=== PATIENT | female | born 1985 | race Caucasian/White ===

== ENCOUNTER 2024-12-01 16:50 | Emergency (ER) | payer OTHER, SELFPAY ==
--- NOTE | ~2024-12-01 | XR_ITS ---
CLINICAL HISTORY: CP 2 view chest x-ray Comparison: None Findings: No consolidation or effusion. Normal size heart. No acute fracture. IMPRESSION: 1. No acute findings. This document has been electronically signed by: Alycia Tavarez MD on 12/01/2024 18:02:39
--- NOTE | 2024-12-01 16:54 | ECG_ITS ---
Test Reason : CHEST PAIN Blood Pressure : */* mmHG Vent. Rate : 74 BPM Atrial Rate : 74 BPM P-R Int : 162 ms QRS Dur : 86 ms QT Int : 368 ms P-R-T Axes : 8 57 46 degrees QTcB Int : 408 ms Normal sinus rhythm Normal ECG When compared with ECG of 16-Dec-2014 19:51, No significant change was found Referred By: Generic ED Physician Electronically Signed By: FLOWER HINES MD
[2024-12-01 17:04] VITALS: BP 145/93; PULSE 67; RESP 16; TEMP 36.6; O2SAT 98; BMI 28.5
--- NOTE | 2024-12-01 17:08 | ED_ITS ---
HPI - Chest Pain General Chief Complaint: Chest Pain Stated Complaint: chest pain Time Seen by Provider: 12/01/24 17:30 Related Data Allergies Allergy/AdvReac Type Severity Reaction Status Date / Time amoxicillin [AMOXICILLIN] Allergy Severe RASH Verified 12/01/24 17:05 sulfamethoxazole Allergy Severe RASH Unverified 09/04/23 14:05 [From BACTRIM] trimethoprim [From BACTRIM] Allergy Severe RASH Unverified 09/04/23 14:05 NSAIDS (Non-Steroidal AdvReac Unknown UNKNOWN Unverified 09/04/23 14:05 Anti-Inflamma [NSAIDS (NON-STEROIDAL ANTI-INFLAMMA] PMFSH Social History Social History (System 09/04/23 @ 14:05 by Kira Medina) Smoked in Last 30 Days: No Use of substances other than those prescribed or required for medical reasons: No Advance Directives: No Advance Directives Information Provided: No Do you have a plan to hurt others: No Plan Patient : No Physical Exam 2 Vital Signs: Vital Signs: Last Vital Signs Temp 98.3 F 12/01/24 19:32 Pulse 69 12/01/24 19:32 Resp 18 12/01/24 19:32 BP 151/96 H 12/01/24 19:32 Pulse Ox 99 12/01/24 19:32 O2 Del Method Room Air 12/01/24 19:32 BMI result Body Mass Index 28.5 Course Course Course Narrative: This is an RME: Additional HPI, ROS, PE not included below will be deferred to primary provider. RME assessment and note performed by: Manisha Chavez PA-C This is a 13-ub[age]ybt-female who presents to the ER with concerns for chest pain since last night. Reports that the chest pain is intermittent, left sided. Reports that the chest symptom feels like a fluttering sensation. Started on Wellbutrin 2 weeks ago for smoking cessation. Plan: EKG, labs, cxr, viral swabs, further ER eval needed. Reevaluation(s) Reevaluation #1: >> >> duplicate chart, please see documentation from primary provider, Dr. Nicolas Gentile Medical Decision Making Lab Data 12/01/24 17:27 12/01/24 17:27 Labs: Lab Results 12/01/24 Range/Units 17:27 WBC 6.6 (4.8-10.8) X10*3/uL RBC 4.06 L (4.20-5.50) X10*6/uL Hgb 12.6 (12.0-16.0) g/dl Hct 37.4 (37.0-47.0) % MCV 92.1 (80.0-98.0) fL MCH 31.0 (27.0-33.0) pg MCHC 33.7 (31.0-35.0) g/dl RDW 12.3 (11.0-16.0) % Plt Count 515 H (160-400) X10*3/uL MPV 8.6 L (9.4-12.3) fL Immature Gran % (Auto) 0.2 (0.0-0.4) % Neut % (Auto) 51.1 (45-73) % Lymph % (Auto) 39.9 (20-40) % Nicollet % (Auto) 7.5 (2-11) % Eos % (Auto) 0.8 (0-4) % Baso % (Auto) 0.5 (0-2) % Lymph # (Auto) 2.6 (1.2-4.9) X10*3/uL Nicollet # (Auto) 0.5 (0.1-1.2) X10*3/uL Eos # (Auto) 0.1 (0.0-0.4) X10*3/uL Baso # (Auto) 0.0 (0.0-0.2) X10*3/uL Abs Immat Gran (auto) 0.01 (0.00-0.03) X10*3/uL Absolute Neuts (auto) 3.4 (2.0-8.3) x10*3/uL Absolute Nucleated RBC 0.000 (0.0-0.012) X10*3/uL Nucleated RBC % (auto) 0.0 (0.0-0.2) /100WBC Sodium 138 (135-145) mmol/L Potassium 3.7 (3.3-5.1) mmol/L Chloride 103 (96-108) mmol/L Carbon Dioxide 28 (22-29) mmol/L Anion Gap 11 L (12-20) BUN 15 (9-16) mg/dL Creatinine 0.78 (0.5-1.4) mg/dL Estim Creat Clear Calc 92.6 Estimated GFR > 60 Random Glucose 79 (60-115) mg/dL Calcium 9.8 (8.4-10.2) mg/dL Magnesium 2.1 (1.6-2.6) mg/dL Total Bilirubin 1.2 H (0.0-1.0) mg/dL Direct Bilirubin 0.4 (0.0-0.5) mg/dL AST 31 (5-31) U/L ALT 28 (0-31) U/L Alkaline Phosphatase 97 (39-117) U/L Troponin I High Sens < 2.7 (<3.5-17.0) ng/L Total Protein 7.8 (6.5-8.0) g/dL Albumin 5.0 (3.5-5.0) g/dL Lipase 21 (8-78) U/L Influenza Type A (PCR) NEGATIVE (Negative) Influenza Type B (PCR) NEGATIVE (Negative) RSV RNA Qual (PCR) NEGATIVE (Negative) SARS-CoV-2 RNA (RT-PCR) NEGATIVE (Negative) Discharge Plan Discharge Clinical Impression: Atypical chest pain Patient Disposition: Home, Self-Care Instructions: Chest Pain (DC) Additional Instructions: _ DISCHARGE DIAGNOSES: Chest discomfort unclear cause Possibly premature atrial beats or premature ventricular beats not seen in the emergency department HISTORY OF PRESENTATION: Atypical upper left chest discomfort EMERGENCY DEPARTMENT COURSE,TESTS, TREATMENTS: While in the ED today you had a reassuring x-ray of your chest, examination of your chest wall and lungs and heart. You had an EKG that was normal and blood tests including cardiac enzyme heart attack test electrolytes blood counts all normal. We monitored your heart on the monitor for over an hour without any arrhythmia or other events. DISCHARGE MEDICATIONS: ?[We have made no changes to your regular medication regimen] FOLLOW-UP: ?Call your primary or general physician soon as possible to discuss your symptoms, your ED visit and to discuss follow up plans Call your Wellbutrin prescribe her discuss your symptoms for follow up INSTRUCTIONS ?& RETURN PRECAUTIONS: If any symptoms change first call your primary physician, if it is after-hours your primary doctors office should have a provider staff sonographer you can speak with. If the symptoms are severe or very concerning to you then call 911 or return to the ED. Nicolas Gentile MD Emergency Physician [facility] Interventions: ED Discharge Assessment Last Done: 12/01/24 19:32 Discharge Date/Time: 12/01/24 19:33 Print Language: Japanese
[2024-12-01 17:31] LABS: MANUAL DIFF FLAG NO
[2024-12-01 17:33] LABS: Basophils Percent Auto 0.5 % (0-2); Eosinophils Absolute Auto 0.1 X10*3/uL (0.0-0.4); Eosinophils Percent Auto 0.8 % (0-4); Hematocrit 37.4 % (37.0-47.0); Hemoglobin 12.6 g/dl (12.0-16.0); Imm Gran Abs Auto 0.01 X10*3/uL (0.00-0.03); Imm Gran Pct Auto 0.2 % (0.0-0.4); Lymphocytes Absolute Auto 2.6 X10*3/uL (1.2-4.9); Lymphocytes Percent Auto 39.9 % (20-40); Mean Corpuscular HGB Conc 33.7 g/dl (31.0-35.0); Mean Corpuscular Volume 92.1 fL (80.0-98.0); Mean Platelet Volume 8.6 fL (9.4-12.3); Monocytes Absolute Auto 0.5 X10*3/uL (0.1-1.2); Monocytes Percent Auto 7.5 % (2-11); Neutrophils Absolute Auto 3.4 x10*3/uL (2.0-8.3); Neutrophils Percent Auto 51.1 % (45-73); Platelet Count 515 X10*3/uL (160-400); Red Blood Count 4.06 X10*6/uL (4.20-5.50); Red Cell Distribution Width 12.3 % (11.0-16.0); White Blood Count 6.6 X10*3/uL (4.8-10.8)
--- NOTE | 2024-12-01 17:39 | ED_ITS ---
HPI - Chest Pain General Chief Complaint: Chest Pain Stated Complaint: chest pain Time Seen by Provider: 12/01/24 17:30 History of Present Illness ED Provider: Nicolas Gentile MD HPI narrative: 39-year-old female who tells me that she has intermittent strange sensation in the upper left chest feels like an off beat or a pulled muscle of the chest sometimes exacerbated with movement of the chest muscles and upper extremities. No injury no pleuritic pain she has been coughing slightly but that is chronic no fever or chills she has an active smoker since her 20s but is reducing daily cigarette use since she has been on Wellbutrin for about 2 weeks. No cardiac conditions does not take any other meds occasional marijuana smoke no other drugs or alcohol Triage history reports Zyban for smoking cessation recently started, heart flutter, chest pain since last night ?pulled muscle ? Related Data Allergies Allergy/AdvReac Type Severity Reaction Status Date / Time amoxicillin [AMOXICILLIN] Allergy Severe RASH Verified 12/01/24 17:05 sulfamethoxazole Allergy Severe RASH Unverified 09/04/23 14:05 [From BACTRIM] trimethoprim [From BACTRIM] Allergy Severe RASH Unverified 09/04/23 14:05 NSAIDS (Non-Steroidal AdvReac Unknown UNKNOWN Unverified 09/04/23 14:05 Anti-Inflamma [NSAIDS (NON-STEROIDAL ANTI-INFLAMMA] [facility] Social History Social History (System 09/04/23 @ 14:05 by Kira Medina) Advance Directives: No Advance Directives Information Provided: No Physical Exam 2 Vital Signs: Vital Signs: Last Vital Signs Temp 97.9 F 12/01/24 17:04 Pulse 67 12/01/24 17:04 Resp 16 12/01/24 17:04 BP 145/93 H 12/01/24 17:04 Pulse Ox 98 12/01/24 17:04 O2 Del Method Room Air 12/01/24 17:04 BMI result Body Mass Index 28.5 Const: Other: EXAM: Gen: Alert, awake, well appearing, well hydrated. Head: Atraumatic Eyes: Anicteric, Normal conjunctiva. ENT: Moist mucosa, no pallor. ? Neck: Supple. Respiratory: Breathing comfortably, No distress.Clear to auscultation bilaterally, symmetric chest expansion, No wheeze, rales, ronchi. Cardiovascular: Regular rate and rhythm. No murmurs or rub. Well perfused periphery, warm extremities. No edema. ? Chest wall: Mild tenderness of the left upper pectoral region no bruising no crepitus Abdominal: Soft, no objective distension. No palpable masses or obvious organomegaly. No focal tenderness, no guarding, no rebound tenderness or other peritoneal findings. : No flank tenderness. Neuro: Alert. Gross movement of all extremities intact. ? Vital signs: See flowsheet Medical Decision Making Medical Decision Making [facility] Narrative: [age] female with intermittent chest discomfort as described. Does not sound like ACS. No DVT or PE history or risk factors. ECG normal including QT doubt complication of Wellbutrin but this could be considered. Differential broad likely musculoskeletal versus intercostal strain versus pericarditis versus PVC/PAC. NO EVENTS INCLUDING NO PAC OR PVC ON MONITOR DURING ED COURSE Lab Data [facility] Lab Attestation statement: I reviewed the patient's lab results. 12/01/24 17:27 12/01/24 17:27 Labs: Lab Results 12/01/24 Range/Units 17:27 WBC 6.6 (4.8-10.8) X10*3/uL RBC 4.06 L (4.20-5.50) X10*6/uL Hgb 12.6 (12.0-16.0) g/dl Hct 37.4 (37.0-47.0) % MCV 92.1 (80.0-98.0) fL MCH 31.0 (27.0-33.0) pg MCHC 33.7 (31.0-35.0) g/dl RDW 12.3 (11.0-16.0) % Plt Count 515 H (160-400) X10*3/uL MPV 8.6 L (9.4-12.3) fL Immature Gran % (Auto) 0.2 (0.0-0.4) % Neut % (Auto) 51.1 (45-73) % Lymph % (Auto) 39.9 (20-40) % Crane % (Auto) 7.5 (2-11) % Eos % (Auto) 0.8 (0-4) % Baso % (Auto) 0.5 (0-2) % Lymph # (Auto) 2.6 (1.2-4.9) X10*3/uL Crane # (Auto) 0.5 (0.1-1.2) X10*3/uL Eos # (Auto) 0.1 (0.0-0.4) X10*3/uL Baso # (Auto) 0.0 (0.0-0.2) X10*3/uL Abs Immat Gran (auto) 0.01 (0.00-0.03) X10*3/uL Absolute Neuts (auto) 3.4 (2.0-8.3) x10*3/uL Absolute Nucleated RBC 0.000 (0.0-0.012) X10*3/uL Nucleated RBC % (auto) 0.0 (0.0-0.2) /100WBC Sodium 138 (135-145) mmol/L Potassium 3.7 (3.3-5.1) mmol/L Chloride 103 (96-108) mmol/L Carbon Dioxide 28 (22-29) mmol/L Anion Gap 11 L (12-20) BUN 15 (9-16) mg/dL Creatinine 0.78 (0.5-1.4) mg/dL Estim Creat Clear Calc 92.6 Estimated GFR > 60 Random Glucose 79 (60-115) mg/dL Calcium 9.8 (8.4-10.2) mg/dL Magnesium 2.1 (1.6-2.6) mg/dL Total Bilirubin 1.2 H (0.0-1.0) mg/dL Direct Bilirubin 0.4 (0.0-0.5) mg/dL AST 31 (5-31) U/L ALT 28 (0-31) U/L Alkaline Phosphatase 97 (39-117) U/L Troponin I High Sens < 2.7 (<3.5-17.0) ng/L Total Protein 7.8 (6.5-8.0) g/dL Albumin 5.0 (3.5-5.0) g/dL Lipase 21 (8-78) U/L Influenza Type A (PCR) NEGATIVE (Negative) Influenza Type B (PCR) NEGATIVE (Negative) RSV RNA Qual (PCR) NEGATIVE (Negative) SARS-CoV-2 RNA (RT-PCR) NEGATIVE (Negative) Independent Interpretation I performed an independent interpretation of an: EKG Interpretation: ECG sinus rhythm rate 74 QTC 408. Normal intervals and axis. No acute ischemic changes Discharge Plan Discharge Clinical Impression: Atypical chest pain Patient Disposition: Home, Self-Care Instructions: Chest Pain (DC) Additional Instructions: _ DISCHARGE DIAGNOSES: Chest discomfort unclear cause Possibly premature atrial beats or premature ventricular beats not seen in the emergency department HISTORY OF PRESENTATION: Atypical upper left chest discomfort EMERGENCY DEPARTMENT COURSE,TESTS, TREATMENTS: While in the ED today you had a reassuring x-ray of your chest, examination of your chest wall and lungs and heart. You had an EKG that was normal and blood tests including cardiac enzyme heart attack test electrolytes blood counts all normal. We monitored your heart on the monitor for over an hour without any arrhythmia or other events. DISCHARGE MEDICATIONS: ?[We have made no changes to your regular medication regimen] FOLLOW-UP: ?Call your primary or general physician soon as possible to discuss your symptoms, your ED visit and to discuss follow up plans Call your Wellbutrin prescribe her discuss your symptoms for follow up INSTRUCTIONS ?& RETURN PRECAUTIONS: If any symptoms change first call your primary physician, if it is after-hours your primary doctors office should have a provider applications system analyst you can speak with. If the symptoms are severe or very concerning to you then call 911 or return to the ED. Nicolas Gentile MD Emergency Physician [facility] Print Language: Romanian
[2024-12-01 17:50] LABS: Alanine Aminotransferase 28 U/L (0-31); Alkaline Phosphatase 97 U/L (39-117); Anion Gap 11 (12-20); Aspartate Amino Transferase 31 U/L (5-31); Bilirubin Direct 0.4 mg/dL (0.0-0.5); Bilirubin Total 1.2 mg/dL (0.0-1.0); Blood Urea Nitrogen 15 mg/dL (9-16); Calcium 9.8 mg/dL (8.4-10.2); Carbon Dioxide 28 mmol/L (22-29); Chloride 103 mmol/L (96-108); Creatinine Clr Calc Pharmacy 92.6; Estimated Glomerular Filt Rate > 60; Glucose Random 79 mg/dL (60-115); Lipase 21 U/L (8-78); Magnesium 2.1 mg/dL (1.6-2.6); Potassium 3.7 mmol/L (3.3-5.1); Sodium 138 mmol/L (135-145); Total Protein 7.8 g/dL (6.5-8.0)
[2024-12-01 17:59] LABS: Troponin-I High Sensitivity < 2.7 ng/L (<3.5-17.0)
[2024-12-01 18:16] LABS: Influenza A PCR NEGATIVE (Negative); Influenza B PCR NEGATIVE (Negative); Resp Syncy Virus RNA Qual PCR NEGATIVE (Negative); SARS COV2 PCR INHOUSE NEGATIVE (Negative)
--- OUTSIDE RECORDS SUMMARY | 2024-12-01 18:26 | XMS_ITS | Encounter Summary ---
Author Organization [facility] Address [facility] [place] [address] Care Team Providers Care Women'S Health Care Nurse Practitioner Name Role Phone Starla De La Paz MD Primary Care Provider Unavail able Ruby Corona MD Unavailable Unavailable Victor Hugo Lopez MD Primary Care Provider Magaly tate Encounter Details Date Type Department Care Team Description 08/31/2018 Release of Information Medical Records [address] [place] [id number] Abstract, Provider Social History Tobacco Use Types Packs/Day Years Used Date Smoking Tobacco: Every Day Cigarettes 0.1 Comments:5-7 cigs daily Alcohol Use Standard Drinks/Week Comments No 0 (1 standard drink = 0.6 oz pur e alcohol) occ Sex Assigned at Date Recorded Not on file documented as of this encounter Plan of Treatment Not on file documented as of this encounter Visit Diagnoses Not on filedocumented in this encounter Care Teams Women'S Health Care Nurse Practitioner Relationship Specialty Start Date End Date Starla De La Paz MD PCP - General Internal Medicine 03/15/17 04/29/22 Victor Hugo Lopez MD PCP - General Family Practice 04/30/22 Ruby Corona MD 02/22/16 documented as of this encounter
--- OUTSIDE RECORDS SUMMARY | 2024-12-01 18:26 | XMS_ITS | Encounter Summary ---
Author Organization [facility] Address [address] [place] [address] Care Team Providers Care Network Field Engineer Name Role Phone Ruby Corona MD Primary Care Provider Wilfredo Ray MD Primary Care Provider Starla Estes MD Primary Care Provider Unavail able Ruby Corona MD Unavailable Unavailable Victor Hugo Lopez MD Primary Care Provider Magaly tate Encounter Details Date Type Department Care Team Description 08/21/2010 Appointment Clerk Report Medical Records [address] [place] [id number] Amirah Moreno MD Social History Tobacco Use Types Packs/Day Years Used Date Smoking Tobacco: Never Alcohol Use Standard Drinks/Week Comments Yes 0 (1 standard drink = 0.6 oz pur e alcohol) occ Sex Assigned at Date Recorded Not on file documented as of this encounter Plan of Treatment Not on file documented as of this encounter Visit Diagnoses Not on filedocumented in this encounter Care Teams Network Field Engineer Relationship Specialty Start Date End Date Ruby Corona MD PCP - General 01/20/08 02/21/16 Wilfredo Tompkins MD PCP - General Internal Medicine 02/22/16 11/12/16 Starla De La Paz MD PCP - General Internal Medicine 03/15/17 04/29/22 Victor Hugo Lopez MD PCP - General Family Practice 04/30/22 Ruby Corona MD 02/22/16 documented as of this encounter
--- OUTSIDE RECORDS SUMMARY | 2024-12-01 18:26 | XMS_ITS | Encounter Summary ---
Author Organization [facility] Address [facility] [place] [address] Care Team Providers Care Pizza Delivery Name Role Phone Wilfredo Tompkins MD Primary Care Provider Starla Estes MD Primary Care Provider Unavail able Ruby Corona MD Unavailable Unavailable Victor Hugo Lopez MD Primary Care Provider Magaly tate Encounter Details Date Type Department Care Team Description 02/27/2016 Release of Information Medical Records [address] [place] [id number] Abstract, Provider Social History Tobacco Use Types Packs/Day Years Used Date Smoking Tobacco: Smoker, Current Status Unknown Cigarettes 0.1 Alcohol Use Standard Drinks/Week Comments No 0 (1 standard drink = 0.6 oz pur e alcohol) socially prior to Sex Assigned at Date Recorded Not on file documented as of this encounter Plan of Treatment Not on file documented as of this encounter Visit Diagnoses Not on filedocumented in this encounter Care Teams Pizza Delivery Relationship Specialty Start Date End Date Wilfredo Tompkins MD PCP - General Internal Medicine 02/22/16 11/12/16 Starla De La Paz MD PCP - General Internal Medicine 03/15/17 04/29/22 Victor Hugo Lopez MD PCP - General Family Practice 04/30/22 Ruby Corona MD 02/22/16 documented as of this encounter
--- OUTSIDE RECORDS SUMMARY | 2024-12-01 18:26 | XMS_ITS | Encounter Summary ---
Author Organization [facility] Address [facility] [place] [address] Care Team Providers Care Candy Butcher Name Role Phone Starla De La Paz MD Primary Care Provider Unavail able Ruby Corona MD Unavailable Unavailable Victor Hugo Lopez MD Primary Care Provider Magaly tate Encounter Details Date Type Department Care Team Description 12/02/2016 Release of Information Medical Records [address] [place] [id number] Abstract, Provider Social History Tobacco Use Types [...] on filedocumented in this encounter Care Teams Candy Butcher Relationship Specialty Start Date End Date Starla De La Paz MD PCP - General Internal Medicine 03/15/17 04/29/22 Victor Hugo Lopez MD PCP - General Family Practice 04/30/22 Ruby Corona MD 02/22/16 documented as of this encounter
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
--- OUTSIDE RECORDS SUMMARY | 2024-12-01 18:26 | XMS_ITS | Encounter Summary ---
Author Organization [facility] Address [address] [place] [address] Care Team Providers Care Marking Machine Operator Name Role Phone Ruby Corona MD Primary Care Provider Wilfredo Ray MD Primary Care Provider Starla Estes MD Primary Care Provider Unavail able Ruby Corona MD Unavailable Unavailable Victor Hugo Lopez MD Primary Care Provider Magaly tate Encounter Details Date Type Department Care Team Description 08/27/2010 Grocery Checker Report Medical Records [address] [place] [id number] Lenin Crabtree MD Social History Tobacco Use Types Packs/Day [...] on filedocumented in this encounter Care Teams Marking Machine Operator Relationship Specialty Start Date End Date Ruby Corona MD PCP - General 01/20/08 02/21/16 Wilfredo Tompkins MD PCP - General Internal Medicine 02/22/16 11/12/16 Starla De La Paz MD PCP - General Internal Medicine 03/15/17 04/29/22 Victor Hugo Lopez MD PCP - General Family Practice 04/30/22 Ruby Corona MD 02/22/16 documented as of this encounter
--- OUTSIDE RECORDS SUMMARY | 2024-12-01 18:26 | XMS_ITS | Encounter Summary ---
Author Organization [facility] Address [facility] [place] [address] Care Team Providers Care Director Enterprise Systems Name Role Phone Wilfredo Tompkins MD Primary Care Provider Starla Estes MD Primary Care Provider Unavail able Ruby Corona MD Unavailable Unavailable Victor Hugo Lopez MD Primary Care Provider Magaly tate Encounter Details Date Type Department Care Team Description 08/19/2016 [facility] Medical Records [address] [place] [id number] Social History Tobacco Use Types Packs/Day Years [...] on filedocumented in this encounter Care Teams Director Enterprise Systems Relationship Specialty Start Date End Date Wilfredo Tompkins MD PCP - General Internal Medicine 02/22/16 11/12/16 Starla De La Paz MD PCP - General Internal Medicine 03/15/17 04/29/22 Victor Hugo Lopez MD PCP - General Family Practice 04/30/22 Ruby Corona MD 02/22/16 documented as of this encounter
--- OUTSIDE RECORDS SUMMARY | 2024-12-01 18:26 | XMS_ITS | Encounter Summary ---
Author Organization [facility] Address [facility] [place] [address] Care Team Providers Care Boat Master Name Role Phone Starla De La Paz MD Primary Care Provider Unavail able Ruby Corona MD Unavailable Unavailable Victor Hugo Lopez MD Primary Care Provider Magaly tate Encounter Details Date Type Department Care Team Description 05/08/2018 Release of Information Medical Records [address] [place] [id number] Abstract, Provider Social History Tobacco Use Types [...] on filedocumented in this encounter Care Teams Boat Master Relationship Specialty Start Date End Date Starla De La Paz MD PCP - General Internal Medicine 03/15/17 04/29/22 Victor Hugo Lopez MD PCP - General Family Practice 04/30/22 Ruby Corona MD 02/22/16 documented as of this encounter
--- OUTSIDE RECORDS SUMMARY | 2024-12-01 18:26 | XMS_ITS | Encounter Summary ---
Author Organization [facility] Address [address] [place] [address] Care Team Providers Care Box Truck Owner Operator Name Role Phone Ruby Corona MD Primary Care Provider Wilfredo Ray MD Primary Care Provider Starla Estes MD Primary Care Provider Unavail able Ruby Corona MD Unavailable Unavailable Victor Hugo Lopez MD Primary Care Provider Magaly tate Encounter Details Date Type Department Care Team Description 09/17/2010 Laboratory Secretary Report Medical Records [address] [place] [id number] Lenin Crabtree MD Social History Tobacco Use [...] on filedocumented in this encounter Care Teams Box Truck Owner Operator Relationship Specialty Start Date End Date Ruby Corona MD PCP - General 01/20/08 02/21/16 Wilfredo Tompkins MD PCP - General Internal Medicine 02/22/16 11/12/16 Starla DeL a Paz MD PCP - General Internal Medicine 03/15/17 04/29/22 Victor Hugo Lopez MD PCP - General Family Practice 04/30/22 Ruby Corona MD 02/22/16 documented as of this encounter
--- OUTSIDE RECORDS SUMMARY | 2024-12-01 18:26 | XMS_ITS | Encounter Summary ---
Author Organization [facility] Address [address] [place] [address] Care Team Providers Care Financial Supervisor Name Role Phone Starla De La Paz MD Primary Care Provider Unavail able Ruby Corona MD Unavailable Unavailable Victor Hugo Lopez MD Primary Care Provider Magaly tate Reason for Visit * Reason Onset Date Comments Medication 04/07/2018 Encounter Details Date Type Department Care Team Description 04/07/2018 Telephone OBGYN - [facility] [address] [place], [place] [phone] Dara Kam CN [address] [place], [place] [phone] Medication Social History Tobacco Use Types Packs/Day Years Used Date Smoking Tobacco: Every Day Cigarettes 0.1 Comments:5-7 cigs daily Alcohol Use Standard Drinks/Week Comments No 0 (1 standard drink = 0.6 oz pur e alcohol) occ Sex Assigned at Date Recorded Not on file documented as of this encounter Miscellaneous Notes * Telephone Encounter - Neda Kessler - 04/07/2018 3:44 PM EDT Chief Complaint/problem: Patient states rx for vitamins was not sent to [facility] How long has the patient had this problem? Pt???s [employer] provider: Dara Kam CNM Last menstrual period (LMP) or EDC (due date): N/A documented in this encounter Plan of Treatment Not on file documented as of this encounter Visit Diagnoses Not on filedocumented in this encounter Care Teams Financial Supervisor Relationship Specialty Start Date End Date Starla De La Paz MD PCP - General Internal Medicine 03/15/17 04/29/22 Victor Hugo Lopez MD PCP - General Family Practice 04/30/22 Ruby Corona MD 02/22/16 documented as of this encounter
--- OUTSIDE RECORDS SUMMARY | 2024-12-01 18:26 | XMS_ITS | Encounter Summary ---
Author Organization [facility] Address [address] [place] [address] Care Team Providers Care Monitoring Coordinator Name Role Phone Ruby Corona MD Primary Care Provider Wilfredo Ray MD Primary Care Provider Starla Estes MD Primary Care Provider Unavail able Ruby Corona MD Unavailable Unavailable Victor Hugo Lopez MD Primary Care Provider Magaly tate Encounter Details Date Type Department Care Team Description 01/25/2011 Controlled Substance Contract with [facility] Medical Records [address] [place] [id number] Abstract, Provider Social History Tobacco Use Types [...] on filedocumented in this encounter Care Teams Monitoring Coordinator Relationship Specialty Start Date End Date Ruby Corona MD PCP - General 01/20/08 02/21/16 Wilfredo Tompkins MD PCP - General Internal Medicine 02/22/16 11/12/16 Starla De La Paz MD PCP - General Internal Medicine 03/15/17 04/29/22 Victor Hugo Lopez MD PCP - General Family Practice 04/30/22 Ruby Corona MD 02/22/16 documented as of this encounter
--- OUTSIDE RECORDS SUMMARY | 2024-12-01 18:26 | XMS_ITS | Encounter Summary ---
Author Organization [facility] Address [facility] [place] [address] Care Team Providers Care Cook Fruit Name Role Phone Wilfredo Tompkins MD Primary Care Provider Starla Estes MD Primary Care Provider Unavail able Ruby Corona MD Unavailable Unavailable Victor Hugo Lopez MD Primary Care Provider Magaly tate Encounter Details Date Type Department Care Team Description 09/16/2016 Release of Information Medical Records [address] [place] [id number] Abstract, Provider Social History Tobacco Use Types [...] on filedocumented in this encounter Care Teams Cook Fruit Relationship Specialty Start Date End Date Wilfredo Tompkins MD PCP - General Internal Medicine 02/22/16 11/12/16 Starla De La Paz MD PCP - General Internal Medicine 03/15/17 04/29/22 Victor Hugo Lopez MD PCP - General Family Practice 04/30/22 Ruby Corona MD 02/22/16 documented as of this encounter
[2024-12-01 19:27] VITALS: BP 151/96; PULSE 69; RESP 18; TEMP 36.8; O2SAT 99
[2024-12-01 19:32] VITALS: BP 151/96; PULSE 69; RESP 18; TEMP 36.8; O2SAT 99
== END 2024-12-01 19:33 | disposition home or self-care (01) ==
PROVIDERS: Physician Assistant Medical; Emergency Provider Emergency Medicine; PCP Internal Medicine
DX: R07.89 Other chest pain (principal); Z03.818 Encounter for observation for suspected exposure to other biological agents ruled out
CPT/HCPCS: 0241U; 71046; 80048; 80076; 83690; 83735; 84484; 85025; 93005; 99283; 99285

== ENCOUNTER → 2024-12-01 16:54 | Outpatient (BNV) | payer OTHER, SELFPAY | PROVIDERS: Emergency Provider Emergency Medicine; PCP Internal Medicine; Visit Provider Internal Medicine Cardiovascular Disease | DX: R07.9 Chest pain, unspecified (principal) | CPT/HCPCS: 93010 ==

== ENCOUNTER → 2024-12-01 17:14 | Outpatient (BNV) | payer OTHER, SELFPAY | PROVIDERS: Emergency Provider Emergency Medicine; PCP Internal Medicine; Visit Provider Radiology Diagnostic Radiology | DX: R07.9 Chest pain, unspecified (principal) | CPT/HCPCS: 71046 ==